=== PATIENT | female | born 1975 | race Two or more races ===

== ENCOUNTER 2023-12-11 13:24 | Emergency (ER) | payer MEDICAID ==
[~2023-12-11] VITALS: Ht 165.1 cm; Wt 89.3 kg
[2023-12-11 15:18] VITALS: BP 134/77; PULSE 83; RESP 18; TEMP 98.1; O2SAT 99
[2023-12-11] MEDS: SODIUM CHLORIDE 0.9% 1,000 ML IV ONE (16:21)
[2023-12-11] MEDS ORDERED: ERY05OO OP (17:06)
[2023-12-11] MEDS ORDERED: KETO0.5S OP (17:06)
== END 2023-12-11 17:32 | disposition home or self-care (01) ==
LOC: ER 13:24
DX: T26.92XA Corrosion of left eye and adnexa, part unspecified, initial encounter (principal); T79.8XXA Other early complications of trauma, initial encounter; Y93.89 Activity, other specified; Y92.89 Other specified places as the place of occurrence of the external cause; Y99.8 Other external cause status
CPT/HCPCS: 96360; 99284; J7030